=== PATIENT | male | born 1960 | race Caucasian/White ===

== ENCOUNTER → 2019-11-01 | Outpatient (CLI) | payer OTHER ==
[~2019-11-01] MED LIST: FLOMAX0.4 MG PO; IBUPROFEN 800800 MG PO; NORCO 5-325 TA1 EACH PO; ZOFRAN4 MG PO
== END ==
LOC: M.CT 14:13
DX: K57.30 Diverticulosis of large intestine without perforation or abscess without bleeding (principal); J98.11 Atelectasis; N32.89 Other specified disorders of bladder; N20.0 Calculus of kidney; I70.0 Atherosclerosis of aorta; K76.0 Fatty (change of) liver, not elsewhere classified

== ENCOUNTER 2020-01-14 13:56 | Inpatient (IN) | payer OTHER ==
[~2020-01-14] VITALS: Ht 170.2 cm; Wt 84.8 kg
[2020-01-14] VITALS (14 sets, daily range): BP systolic 114–201; BP diastolic 72–102
[2020-01-14] MEDS ORDERED: MELOXICAM15 MG PO (14:07)
[2020-01-14] MEDS ORDERED: ASA81BEC PO (14:09)
[2020-01-14 14:24] LABS: ABSOLUTE BASOPHILS 0.1 thou/uL (0.0-0.2); ABSOLUTE EOSINOPHILS 0.2 thou/uL (0.0-0.7); ABSOLUTE LYMPHOCYTES 2.1 thou/uL (0.8-5.3); ABSOLUTE MONOCYTES 0.6 thou/uL (0.0-1.2); ABSOLUTE NEUTROPHILS 7.6 thou/uL (1.6-8.1); BASOPHILS 0.8 %; EOSINOPHILS 1.4 %; HEMATOCRIT 47.8 % (42.0-52.0); HEMOGLOBIN 16.9 gm/dL (14.0-18.0); LYMPHOCYTES 19.6 %; MCH 32.7 pg (26.0-34.0); MCHC 35.4 g/dL (28.0-37.0); MCV 92.3 fL (80.0-100.0); MONOCYTES 5.9 %; MPV 9.3 fl. (7.2-11.1); NUCLEATED RBCS 0 /100WBC; PLATELET COUNT* 206 thou/uL (150-400); POLYS 72.3 %; RBC 5.18 mil/uL (4.50-6.00); RDW-CV 12.6 % (10.5-14.5); WBC 10.5 thou/uL (4.0-11.0)
[2020-01-14 14:31] LABS: CALCIUM 8.8 mg/dL (8.5-10.1); CREATININE 1.1 mg/dL (0.6-1.3); POTASSIUM 3.2 mmol/L (3.5-5.1)
[2020-01-14 14:42] LABS: ALBUMIN 4.3 g/dL (3.4-5.0); MAGNESIUM 1.8 mg/dL (1.8-2.4); TOTAL BILIRUBIN 0.8 mg/dL (<0.1-1.0); TOTAL PROTEIN 7.8 g/dL (6.4-8.2)
[2020-01-14] MEDS ORDERED: LIPITOR40 MG PO (14:51)
[2020-01-14] MEDS ORDERED: BENAZEPRIL HCL40 MG PO (14:51)
[2020-01-14] MEDS ORDERED: AMLODIPINE BESY10 MG PO (14:52)
--- NOTE | 2020-01-14 16:38 | EKG ---
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 : 1960 Requested By: Nate Sin Order Number: [id number] MD: Amor Rosado Measurements Intervals [place] Rate: 74 P: 57 [place]: 150 QRS: 40 QRSD: 115 T: -6 QT: 393 QTc: 436 Interpretive Statements Sinus rhythm Incomplete right bundle branch block Baseline wander in lead(s) II,III,aVR,aVF Compared to ECG 10/15/2013 18:31:33 no change Electronically Signed On 01-14-2020 16:38:32 CDT by Amor Rosado [email or web address] <ELECTRONICALLY SIGNED> By: Amor Rosado MD, [facility] 01/14/20 1638 1402 1402 Amor Rosado MD, [facility] /EPI
[2020-01-14] MEDS ORDERED: PROVENTIL HFA6.7 G1 INH (20:33)
[2020-01-15] VITALS: BP 118/64
[2020-01-15 04:00] VITALS: BP 103/70
[2020-01-15 05:14] LABS: ABSOLUTE EOSINOPHILS 0.1 thou/uL (0.0-0.7); ABSOLUTE LYMPHOCYTES 1.8 thou/uL (0.8-5.3); ABSOLUTE MONOCYTES 0.5 thou/uL (0.0-1.2); ABSOLUTE NEUTROPHILS 5.8 thou/uL (1.6-8.1); BASOPHILS 0.4 %; EOSINOPHILS 1.7 %; MCH 32.5 pg (26.0-34.0); MCHC 35.8 g/dL (28.0-37.0); MCV 90.9 fL (80.0-100.0); MONOCYTES 6.5 %; MPV 8.6 fl. (7.2-11.1); NUCLEATED RBCS 0 /100WBC; PLATELET COUNT* 173 thou/uL (150-400); POLYS 69.4 %; RBC 4.51 mil/uL (4.50-6.00); RDW-CV 12.6 % (10.5-14.5); WBC 8.3 thou/uL (4.0-11.0)
[2020-01-15 05:23] LABS: POTASSIUM 3.3 mmol/L (3.5-5.1)
[2020-01-15 05:31] LABS: HEMOGLOBIN 14.7 gm/dL (14.0-18.0)
--- NOTE | 2020-01-15 06:22 | NUR ---
PT CARE ASSUMED AT 1930. SAT MAINTAINED IN RA BUT C/O TROUBLE BREATHING, CONNECTED ON 2L NC. DENIES PAIN. CALL LIGHT WITHIN REACH AND BED IN LOW POSITION. HOURLY ROUNDING DONE FOR PT SAFETY.
[2020-01-15 08:00] VITALS: BP 126/89
--- NOTE | 2020-01-15 11:00 | CARD ---
[address] [address] CARDIAC CATH REPORT Name: GATITO TSAI Room: [address] IN [facility]#: [id number] Admission: 01/14/20 Attend Phys: Soy Rojas MD Discharge: Date of : 64 Report #: [id number] THIS REPORT FOR: //name// cc: Monet Capellan Maggie M. 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 Amor Rosado [facility], Shantanu Albarado RN Risk Management Professional, Kailyn Baptiste RTR [employer] SHE[employer] SUPERVISOR Monitor, Noemy Pascal Risk Management Professional Procedures Performed Art Access - R radial artery Left Heart Cath w/or w/o Coronaries [id number] [facility] [address] Place w/wo Plasty Single RCA [id number] Indication Non-STEMI (>6 hrs to = 12 hrs), Chest pain Risk Factors Hypercholesterolemia, Hypertension, Tobacco History () Admission/Lab Medications/Medications given during procedure Glycoprotein IllbIlla Inhibitors, Heparin Unfract. Procedure Narrative The patient was brought urgently to the Cardiac Catheterization Laboratory and was prepped and draped in a sterile manner. The right wrist was infiltrated with 1% Lidocaine subcutaneous anesthesia. A Slender Glidesheath sheath was inserted into the RRA. Coronary angiography was performed using coronary diagnostic catheters. The right coronary system was accessed and visualized with a JR4 catheter. The left coronary system was accessed and visualized with a JL4 catheter. The left ventricle was accessed and visualized with a PIG catheter. Left ventricular/Aortic Valve gradient assessed via catheter pullback. Left ventriculogram was performed in MCKEON projection. Closure device was deployed with a 6 [place] [address] CARDIAC CATH REPORT Name: GATITO TSAI Room: [address]#: [id number] Admission: 01/14/20 Attend Phys: Soy Rojas MD Discharge: Date of : 64 Report #: [id number] patient tolerated the procedure well and there were no complications associated with the procedure. There was no hematoma. Intraoperative Conscious Sedation Sedation start time: 1642 Case end Time: 1725 Fentanyl 25 mcg Fluoro Time: 8.9 minutes Dose: DAP 72036 cGycm2 1686 mGy Contrast Type and Amount: Visipaque 140 ml Coronary Angiography The patient's coronary anatomy is right dominant. Diagnostic Cath Left Main 0% stenosis LAD 30% mid stenosis Circumflex distal circumflex had a 90% stenosis prior to the takeoff of a small 4th marginal branch Right Coronary mid RCA was totally occluded prior to the acute margin with collateral flow noted from the left coronary artery. R PDA small vessel with 90% proximal stenosis Ramus medium sized vessel with proximal 60% stenosis Left Ventriculography The left ventricular ejection fraction is estimated to be 60-65%. Left ventricular wall motion abnormalities are not present. There is no mitral insufficiency. Hemodynamics The aortic pressure is 106/65 mmHg with a mean of 84 mmHg. The left ventricular pressure is 130/10 mmHg with a mean of mmHg. The left ventricular end diastolic pressure is 16 mmHg. There was no gradient across the aortic valve upon pullback. Pullback from the left ventricle to the aorta revealed no gradient across the aortic valve. PCI Technique Lesion Anticoagulation was achieved with Heparin. bolus of iv aggrastat given Percutaneous coronary intervention was performed on the mid right coronary artery. The lesion stenosis prior to intervention was 100% with DONNA 0 flow. A 6F JR 4.0 Guide Catheter was used to engage the rca ostium. A IG: BMW 190cm Interventional Guidewire was used to cross the lesion[place] [address] CARDIAC CATH REPORT Name: GATITO TSAI Room: [address]#: [id number] Admission: 01/14/20 Attend Phys: Soy Rojas MD Discharge: Date of : 64 Report #: [id number] A Balloon catheter Trek RX 2.5 X 8 was inserted and inflated up to 16.00atm for 14seconds. Repeat angiography revealed the following post-dilatation results: 80% long stenosis noted. Additional Inflation: 16.00atm for 10seconds. STENT DEPLOYMENT A drug-eluting stent Malachi RX Stent 2.84x45ei was inserted and inflated up to 15atm for 16seconds. Repeat angiography revealed the following post-stent deployment results: 0% stenosis. Additional Inflation: 16atm for 15seconds. After deployment of the first stent at the acute margin of the rca, there was a 80% stenosis noted proximal to the stent. A second 2.75 x 15 mm drug eluting stent was placed proximal to the first stent so that there was minimal overlap between the 2 stents. Final angiography reveals 0 % stenosis with DONNA 3 flow. Conclusion 1. 100% recent occlusion of the mid rca 2. LVEF 60-65% 3. successful placement of 2 drug eluting stent in the mid rca Recommendations Cardiac Rehabilitation Referral Aggressive Medical Therapy Medications Administered Prasugrel <ELECTRONICALLY SIGNED> By: Amor Rosado MD, [facility] 01/15/20 1059 1059 1059Dajerome Rosdao MD, FAC /INF
[2020-01-15 11:44] VITALS: BP 159/89
[2020-01-15] MEDS ORDERED: EFFIENT10 MG PO (12:03)
[2020-01-15 12:58] VITALS: BP 159/89
--- NOTE | 2020-01-15 14:01 | EKG ---
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
--- NOTE | 2020-01-17 15:16 | EKG ---
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 01/17/20 1516 1012 1012 Amor Rosado MD, [facility] /EPI
--- NOTE | 2020-01-17 16:36 | D ---
[address] [address] DISCHARGE SUMMARY Name: FOUZIA TSAIN Jarrod Room: [address]#: [id number] Admission: 01/14/20 Attend Phys: Soy Rojas MD Discharge: 01/15/20 Date of : 64 Report #: [id number] THIS REPORT FOR: //name// cc: Monet Capellan Maggie M. DO THIS REPORT FOR: //name// CC: Soy Capellan DO DATE OF SERVICE: 01/14/2020 DISCHARGE DIAGNOSES: 1. Non-ST elevation myocardial infarction. 2. Hyperlipidemia. 3. Pericardial effusion. 4. Glucose intolerance. 5. Hypertension. 6. Tobacco abuse. PROCEDURES DURING THE HOSPITALIZATION: 1. Coronary angiography. 2. Left heart catheterization. 3. Left ventriculography. 4. Percutaneous coronary intervention with drug-eluting stent placement to an acutely occluded distal right coronary artery. HOSPITAL COURSE: The patient was seen in the Emergency Room with chest pain and elevated enzymes consistent with non-ST elevation myocardial infarction. The patient was taken to the cardiac catheterization lab and found to have an acutely occluded distal right coronary artery for which he underwent percutaneous coronary intervention with drug-eluting stent placement with excellent result. The patient had an uneventful recovery and is being discharged. DISCHARGE MEDICATIONS: Lipitor 40 mg p.o. daily, aspirin 325 mg daily, Protonix 40 mg daily, Combivent inhaler q.i.d., nitroglycerin sublingual p.r.n., Effient 10 mg daily. DISPOSITION: The patient will follow up with Cardiology in 1 week. <ELECTRONICALLY SIGNED> By: Raulito Sims MD, [facility] 01/17/20 1636 1208 1213Micestefani Sims MD, FACC /nt
--- NOTE | 2020-01-17 16:37 | CON ---
[address] [address] CONSULTATION Name: QUINGATITO W Room: [address] IN M.R.#: [id number] Admission: 01/14/20 Attend Phys: Soy Rojas MD Discharge: 01/15/20 Date of : 64 Report #: [id number] THIS REPORT FOR: //name// cc: Monet Capellan Maggie M. DO ~ THIS REPORT FOR: //name// CC: Nate Capellan DO DATE OF SERVICE: 01/14/2020 CARDIOLOGY CONSULTATION HISTORY OF PRESENT ILLNESS: The patient is a 59-year-old single white male who I was asked to see in the Emergency Room today after he complained of chest pain. The patient has no previous history of heart disease. He apparently has never had a stress test in the past. He does state, however, that recently he noticed blood in the urine. He was seen by his primary care physician and apparently had a CT scan of the abdomen and pelvis here at [place]. This showed moderate pericardial effusion, small kidney stone. He was seen by Urology who recommended no further urologic evaluation. He has had no further blood in urine. Because of the pericardial effusion, he was seen by my partner, Dr. Sims. Apparently he had an echocardiogram that showed minimal pericardial effusion. Dr. Sims recommended no further cardiac evaluation. The patient states he was doing well until 2 nights ago, he developed a tightness in his chest that lasted about an hour. Last night, he again had a tightness in his chest, lasted all night long and it can go to sleep. Finally, he fell asleep, woke up at 5 this morning. He continued to have the tightness. He felt somewhat short of breath, but no diaphoresis or nausea. There is no radiation to his arms. His girlfriend brought him to the Emergency Room. His troponin was elevated. I was asked to see him for further evaluation and treatment. He denies a history of exertional dyspnea, palpitations, syncope, or peripheral edema. He does have numbness of the right arm. PAST MEDICAL HISTORY: He has had no surgical procedures. He has a history of hypertension, glucose intolerance, and hyperlipidemia. CURRENT MEDICATIONS: Consist of a statin drug, Flomax. He is on blood pressure medications. He takes an aspirin a day. FAMILY HISTORY: His brother had stents. 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 Smokes a pack of cigarettes a day, [place] [address] CONSULTATION Name: GATITO TSAI Room: [address]#: [id number] Admission: 01/14/20 Attend Phys: Soy Rojas MD Discharge: 01/15/20 Date of : 64 Report #: [id number] alcohol excessively, went to , now has about 3 drinks a day, used to do speed and marijuana, but no longer abuses drugs. REVIEW OF SYSTEMS: No history of stroke. He does have a chronic cough. He uses inhaler. No liver disease. He has had kidney stones in the past. No chronic skin condition. No psychiatric illness. He apparently had a plate placed in his left wrist in the past. PHYSICAL EXAMINATION: GENERAL: Revealed a middle-aged male, lying in bed. No acute distress. VITAL SIGNS: He had a blood pressure of 160/90, pulse 90, he was afebrile. HEENT: Anicteric. Conjunctivae pink. Mucous membranes moist. NECK: Veins nondistended. No carotid bruits. Neck supple. CHEST: Clear to auscultation. CARDIOVASCULAR: Regular rate and rhythm. ABDOMEN: Soft. EXTREMITIES: Had no edema. Posterior tibial pulse 2+ bilaterally. SKIN: Cool and dry. NEUROLOGIC: Nonfocal. RADIOLOGICAL DATA: His ECG showed a sinus rhythm, incomplete right bundle branch block, nonspecific T-wave changes. His remaining workup, he had chest x-ray that showed normal heart size, mild interstitial changes. He had a CT scan of the chest which showed no pulmonary embolus, but a small pericardial effusion. LABORATORY WORK: Sodium 139, potassium 3.2, creatinine 1.1, glucose 136. His troponin on admission was 4.1. White blood cell count 10.5, hemoglobin 16.9. IMPRESSION AND RECOMMENDATIONS: 1. Non-ST elevation myocardial infarction. Recommend cardiac catheterization. 2. Pericardial effusion. Recommend checking thyroid function studies. No evidence of tamponade. 3. Glucose intolerance. 4. Hypertension. The patient is on medications. 5. Hyperlipidemia. The patient is on a statin drug. 6. History of illicit drug use. 7. History of alcohol abuse. 8. Tobacco abuse. 9. Chronic bronchitis. <ELECTRONICALLY SIGNED> By: Amor Rosado MD, FACC 01/17/20 1637 1542 1559Amor Rosado MD, FAC /nt
== END 2020-01-15 13:38 | disposition home or self-care (01) | DRG 246 ==
LOC: M.ERS 13:56 → M.CL 13:56 → M.ERS 16:22 → M.2W 17:45 → M.TBA-ER 17:45 → M.2W 18:14
PROVIDERS: Emergency Medicine Emergency Medical Services; ADMIT Internal Medicine; ATTEND Internal Medicine
DX: I21.4 Non-ST elevation (NSTEMI) myocardial infarction (principal); I50.33 Acute on chronic diastolic (congestive) heart failure; I31.3 Pericardial effusion (noninflammatory); I25.10 Atherosclerotic heart disease of native coronary artery without angina pectoris; I10 Essential (primary) hypertension; E78.5 Hyperlipidemia, unspecified; F17.210 Nicotine dependence, cigarettes, uncomplicated; F10.10 Alcohol abuse, uncomplicated; Y90.9 Presence of alcohol in blood, level not specified; E74.39 Other disorders of intestinal carbohydrate absorption; Z79.82 Long term (current) use of aspirin; Z79.899 Other long term (current) drug therapy; Z88.7 Allergy status to serum and vaccine; Z03.818 Encounter for observation for suspected exposure to other biological agents ruled out